=== PATIENT | female | born 1990 | race Caucasian/White ===

== ENCOUNTER 2017-01-10 07:30 | Emergency (ER) | payer OTHER ==
[~2017-01-10] VITALS: Ht 182.9 cm; Wt 72.7 kg
[~2017-01-10 07:30] MED LIST: LAMO100T PO; LAMO200T2 PO; LAMO200T51 PO; LORA-303 PO; LORA1TAB PO; OLAN10TA19 PO; OLAN5TAB PO; PRAZ2CAP PO
[2017-01-10 07:34] VITALS: BP 113/76; PULSE 75; RESP 14; O2SAT 98
--- NOTE | 2017-01-10 07:46 | ED.REPORT ---
HPI- Female Date of Service Jan 10, 2017 ED Provider: Hardeep Canela MD Patient is a 26 year old sexually active female with a hx of multiple UTI's who presents to the ED complaining of a few days of dysuria. Associated symptoms include mild lower abdominal pain, urinary urgency and increased frequency. She denies nausea, vomiting, fever, chills, flank pain, or any other symptoms. Pt has a copper IUD. Nursing Notes Stated Complaint: ABD PAIN,PAINFUL URINATION Chief Complaint: Female Abdominal Pain Nursing Notes Reviewed: Yes Allergies: Coded Allergies: red dye (Verified Allergy, Intermediate, HIVES, 05/31/15) Scheduled Lamotrigine (Lamictal) 100 Mg Tablet 200 MG PO DAILY Lamotrigine (Lamotrigine) 200 Mg Tablet 200 MG PO DAILY Lamotrigine ER (Lamotrigine ER) 200 Mg Tab.er.24 200 MG PO DAILY Nitrofurantoin Monohyd/M-Cryst (MacroBid) 100 Mg Capsule 100 MG PO BID Olanzapine (Olanzapine) 10 Mg Tablet 10 MG PO BID Olanzapine (Olanzapine) 5 Mg Tablet 5 MG PO BID may use this for anxiety in ADDITION to the scheduled olanzapine 10mg am and pm Olanzapine (Olanzapine) 10 Mg Tablet 10 MG PO BID Prazosin (Minipress) 2 Mg Capsule 4 MG PO HS Prazosin (Minipress) 2 Mg Capsule 2 MG PO MORNING Scheduled PRN Lorazepam (Ativan) 1 Mg Tablet 1 MG PO TID PRN PRN ANXIETY, Lorazepam (Ativan) 1 Mg Tablet 1 MG PO TID PRN PRN For Anxiety Lorazepam (Lorazepam) 1 Mg Tablet 1 MG PO TID PRN PRN For Anxiety Olanzapine (Olanzapine) 5 Mg Tablet 5 MG PO BID PRN PRN For Anxiety or Agitation General Time Seen by MD: 07:43 Chief Complaint Dysuria Hx Obtained From: Patient Arrived By: Walk-in Sudden in Onset?: Yes Onset Occurred: 3 days ago Symptom Duration: Since onset Location: : Abdomen lower Quality: Painful Severity: Current: Mild Severity: Maximum: Mild Sexual History / Control: Reports Pt is sexually active Similar Sx Previous: Yes Past Medical History Past Medical History ADHD PTSD Bipolar with psychotic features verus schizoaffective, bipolar type history of alcohol abuse - in recovery prior psychiatric admissions and overdose attempts multiple UTI's Past Surgical History Dental Family History Noncontributory Smoking History Former Smoker Social History Alcohol Use: In recovery Drug Use: Denies drug use, In recovery Other Social History: Good social support, Local resident Ambulatory Status Independent Review of Systems Constitutional: Denies: Chills, Fever GI: Reports: Abdominal pain, Denies: Nausea, Vomiting Female: Reports: Dysuria, Urinary frequency, Urinary urgency, Denies: Flank pain Complete sys rev & neg: except as marked. Physical Exam Initial Vital Signs Vital Signs (First) Date Time Temp Pulse Resp B/P Pulse Ox O2 Delivery O2 Flow Rate FiO2 01/10/17 07:34 36.7 75 14 113/76 98 Initial VS: Reviewed, Vital signs normal Head / Eyes: Atraumatic, Normocephalic Neck: Full range of motion Respiratory: No respiratory distress Skin: Warm, Dry Neurologic: Alert, Oriented, Nonfocal Female Genitourinary: Exam deferred General/Constitutional: Awake, Alert, No acute distress Abdomen: Atraumatic, Soft Mild lower abdominal tenderness Back: No CVA tenderness Re-Eval/Medical Decision Med Decision/Clinical Course culture ordered Re-Evaluation/Progress : Time of Eval: 07:49 Re-Evaluation/Progress Note: Discussed plan for abx, discharge, and f/u during initial interview. Patient understands and agrees with plan. All questions addressed at this time. Counseled Regarding: Diagnosis, Need for follow-up, When/why to return to ED Discharge & Departure Impression: Primary Impression: Urinary tract infection Urinary tract infection type: acute cystitis Hematuria presence: without hematuria Qualified Code: N30.00 - Acute cystitis without hematuria Disposition: Home Discharge Condition All VS Reviewed: Yes Condition: Stable Patient Instructions: Urinary Tract Infection in Women (DC) Additional Instructions: Drink lots of fluid. Take nitrofurantoin twice daily for 3 days. Use phenazopyridine as needed for painful urination. Follow-up right away for high fever, vomiting or symptoms not improving in the next couple of days. Referrals: Doug Magana MD (PCP) Raffi Attestation Portions of this note were transcribed by Tayler Horvath. IDr. Canela personally performed the history, physical exam and medical decision-making; I reviewed and confirmed the accuracy of the information in the transcribed note. Signed by: Raffi Ortiz, 01/10/17 copies to: Doug Magana MD, Kirk H MD Jan 10, 2017 07:46 TAYLER HORVATH Jan 10, 2017 07:54
[2017-01-10] MEDS ORDERED: NITR100 PO (07:49)
[2017-01-10] MEDS ORDERED: Nitrofurantoin Monohyd-Macrocryst 100 mg Capsule PO ONE (07:50)
[2017-01-10] MEDS ORDERED: Phenazopyridine 97.5 mg Tablet PO ONE (07:50)
== END 2017-01-10 08:05 | disposition home or self-care (01) ==
LOC: SED 07:30
DX: N30.00 Acute cystitis without hematuria (principal); F90.9 Attention-deficit hyperactivity disorder, unspecified type; Z87.891 Personal history of nicotine dependence; Z87.440 Personal history of urinary (tract) infections; Z88.8 Allergy status to other drugs, medicaments and biological substances